=== PATIENT | female | born 1990 | race Hispanic/Latino ===

== ENCOUNTER 2017-04-27 23:02 | Emergency (ER) | payer BC ==
[2017-04-27 23:53] VITALS: BP 150/83; PULSE 75; RESP 17; TEMP 98.1; O2SAT 100
--- NOTE | 2017-04-28 00:14 | ED PDOC ---
Arrival/HPI - General Historian: Patient - History of Present Illness Time/Duration: Other (see hpi) Quality: Aching Context: Work - General Chief Complaint: Lower Extremity Problem/Injury Time Seen by Provider: 04/28/17 00:01 - History of Present Illness Narrative History of Present Illness (Text): 04/28/17 00:01 This 26 yo female presents to this ED c/o left ankle pain x 34 hours. Patient stated while unloading a truck at work, she tripped and fell down on the floor, causing left ankle pain. (Sierra Chester) Past Medical History - Provider Review Nursing Documentation Reviewed: Yes - Infectious Disease Hx of Infectious Diseases: None - Pulmonary Hx Asthma: Yes - Neurological Hx Migraine: Yes - Psychiatric Hx Substance Use: No - Anesthesia Hx Anesthesia: No Hx Anesthesia Reactions: No Hx Malignant Hyperthermia: No - Suicidal Assessment Feels Threatened In Home Enviroment: No Family/Social History - Physician Review Nursing Documentation Reviewed: Yes Family/Social History: Other (non-contributory) Smoking Status: Never Smoked Hx Alcohol Use: Yes Frequency of alcohol use: Socially Hx Substance Use: No Allergies/Home Meds Allergies/Adverse Reactions: Allergies tramadol Adverse Reaction (Verified 07/09/16 08:03) ITCHING black martins Allergy (Uncoded 07/09/16 08:03) ITCHING Home Medications: Home Meds Medication Instructions Recorded Confirmed Albuterol HFA [Ventolin HFA 90 0.09 mg IH PRN PRN 04/27/17 04/27/17 mcg/actuation (8 g)] Fluticasone/Salmeterol [Advair 1 each IH BID 04/27/17 04/27/17 250-50 Diskus] Review of Systems - Review of Systems Constitutional: Normal. absent: Fatigue, Weight Change, Fevers Eyes: Normal ENT: Normal Respiratory: Normal Cardiovascular: Normal Gastrointestinal: Normal Genitourinary Female: Normal Musculoskeletal: Other (left ankle pain) Skin: Normal Neurological: Normal Endocrine: Normal Hemo/Lymphatic: Normal Psychiatric: Normal Physical Exam Temperature: Afebrile Blood Pressure: Normal Pulse: Regular Respiratory Rate: Normal Appearance: Positive for: Well-Appearing, Non-Toxic, Comfortable Pain Distress: None Mental Status: Positive for: Alert and Oriented X 3 - Systems Exam Head: Present: Atraumatic, Normocephalic Pupils: Present: PERRL Extroacular Muscles: Present: EOMI Conjunctiva: Present: Normal Mouth: Present: Moist Mucous Membranes Neck: Present: Normal Range of Motion Upper Extremity: Present: Normal Inspection, Normal ROM, NORMAL PULSES Lower Extremity: Present: NORMAL PULSES, Tenderness ((+) mild left malleoulus tenderness. ), Swelling, Neurovascularly Intact, Capillary Refill < 2 s, Other (Navarro is negative. No posterior ankle pain. no calf pain). No: Edema, CALF TENDERNESS, Erythema, Deformity, Temperature Abnormalties Neurological: Present: GCS=15, CN II-XII Intact, Speech Normal Skin: Present: Warm, Dry, Normal Color. No: Rashes Psychiatric: Present: Alert, Oriented x 3, Normal Insight, Normal Concentration Vital Signs Temp Pulse Resp BP Pulse Ox 04/27/17 23:52 98.1 F 75 17 150/83 100 Medical Decision Making Re-evaluation Time: 02:26 Reassessment Condition: Re-examined, Improved ED Course and Treatment: 04/28/17 00:58 I was available for consultation during PA evaluation. The chart was reviewed by me, and I agree with disposition. The documented history was done by the physician drafter civil. The documented procedures were done by the physician drafter civil. (Eloy Lyons) 04/28/17 00:14 Patient refused Toradol IM, she prefers Motrin PO instead 04/28/17 02:26 Re-evaluation. Patient feels better. Discussed results and plan with patient who expresses understanding. All questions answered and there is agreement with the plan to discharge home with instructions. Patient stable for discharge. Return if symptoms persist or worsen. 04/28/17 02:28 Patient stated she can not use crutches, she prefers posterior splint, and post op shoes. she understands risk of worsen Fx. if she puts weight on affected foot. (Sierra Chester) - RAD Interpretation Narrative RAD Interpretations (Text): 04/28/17 02:26 Ankle x-rays: (+) distal non-displaced fibular Fx. Tib Fib x-rays: See ankle (Sierra Chester) Radiology Orders: 04/28/17 00:11 ANKLE LEFT 3 VIEWS ROUTINE [RAD] Stat 04/28/17 00:12 TIBIA FIBULA LEFT [RAD] Stat - Medication Orders Current Medication Orders: Discontinued Medications Ibuprofen (Motrin Tab) 600 mg PO STAT STA Stop: 04/28/17 00:13 Last Admin: 04/28/17 00:47 Dose: 600 mg MAR Pain/Vitals Document 04/28/17 00:47 JOL (Rec: 04/28/17 00:48 JOL [id number]) Pain Reassessment Is This A Pain ReAssessment? No Sleep Is patient sleeping during reassessment? No Presence of Pain Presence of Pain Yes Pain Scale Used Pain Scale Used Numeric - Procedure PROCEDURE NOTE (Text): 04/28/17 02:27 PROCEDURE: SPLINT APPLICATION Applied by Shipping Weigher, supervised by Emergency Provider. Location:left ankle Procedure: The area of the splint was appropriately positioned. A posterior long leg ortho 5inch splint was applied. Post-procedure: Good position. Neurovascular status remains intact. Patient tolerated the procedure well with no immediate complications. (Sierra Chester) Disposition/Present on Arrival - Present on Arrival Any Indicators Present on Arrival: No History of DVT/PE: No History of Uncontrolled Diabetes: No Urinary Catheter: No History of Decub. Ulcer: No History Surgical Site Infection Following: None - Disposition Have Diagnosis and Disposition been Completed?: Yes Disposition Time: 02:29 Patient Plan: Discharge - Disposition Diagnosis: Fracture of distal end of fibula Disposition: HOME/ ROUTINE Condition: GOOD Discharge Instructions (ExitCare): Ankle Fracture (ED) Additional Instructions: Call orthopedist office tomorrow for follow up visit in 1-2 days. keep ankle elevated, ice, rest, crutches, splint. Return to emergency if symptoms worsen. [employer] Specialist Comp for further evaluation for orthopedist Prescriptions: Ibuprofen [Motrin] 600 mg PO Q8 PRN #20 tab PRN Reason: Pain, Severe (8-10) Referrals: Toni Valdivia MD [Primary Care Provider] - Follow up with primary Nahid Dent III, MD [Medical Doctor] - Follow up with primary Forms: [employer] ([place]), WORK NOTE
--- NOTE | 2017-04-28 09:45 | RAD ---
PROCEDURE: Radiographs of the left tibia and fibula. HISTORY: pain s/p fall COMPARISON: None available. TECHNIQUE: Frontal and lateral views obtained. FINDINGS: BONES: There is a linear obliquely oriented nondisplaced fracture in the distal fibula JOINT SPACES: Unremarkable. OTHER FINDINGS: None. IMPRESSION: There is a linear obliquely oriented nondisplaced fracture in the distal fibula
--- NOTE | 2017-04-28 09:46 | RAD ---
PROCEDURE: Left Ankle Radiographs. HISTORY: pain COMPARISON: None FINDINGS: BONES: There is a linear obliquely oriented nondisplaced fracture in the distal fibula JOINTS: Normal. No osteoarthritis. Ankle mortise maintained. Talar dome intact SOFT TISSUES: Normal. OTHER FINDINGS: None. IMPRESSION: There is a linear obliquely oriented nondisplaced fracture in the distal fibula
== END 2017-04-28 03:36 | disposition home or self-care (01) ==
LOC: ED 23:02
DX: S82.832A Other fracture of upper and lower end of left fibula, initial encounter for closed fracture (principal); W01.0XXA Fall on same level from slipping, tripping and stumbling without subsequent striking against object, initial encounter; Y99.0 Civilian activity done for income or pay